=== PATIENT | female | born 1980 | race American Indian/Alaskan Native ===

== ENCOUNTER 2017-02-12 18:04 | Emergency (ER) | payer MEDICAID ==
--- NOTE | 2017-02-12 18:23 | Emergency Department Report ---
Chief Complaint: Sore Throat Stated Complaint: SORE THROAT/HEADACHE Time Seen by Provider: 02/12/17 18:19 - HPI History of Present Illness: PT c/o sore throat x 2 days - ROS Review of Systems: + body aches + sore throat + fever - Exam Physical Exam: exudative pharyngitis MSE screening note: Focused history and physical exam performed. Due to findings the following was ordered: medication pt not breast feeding ED Disposition for MSE Condition: Stable
[2017-02-12] MEDS ORDERED: BICILLIN L-A IM ONE (18:24)
[2017-02-12] MEDS ORDERED: NORCO 5/325 PO ONE (18:24)
--- NOTE | 2017-02-12 20:11 | Emergency Department Report ---
HPI - General Chief Complaint: Sore Throat Time Seen by Provider: 02/12/17 18:19 - HPI HPI: Patient here reports that she has sore throat 2 days and that she was exposed to strep from her family member. She reports bodyaches and headache. Reports chills. Denies any drooling. Denies any cough or respiratory distress. Pain is worse with eating and swallowing better after taking ibuprofen which she says she took 2 hours prior to coming to the emergency room. She is also reporting headache. Headache and sore throat is 8 out of 10 and achy. She also reports that she feels that the pain is radiating from her throat into her her ears. Last menstrual period was 01/31 2017. Denies any nausea or vomiting. Denies any abdominal pain. ED Past Medical Hx - Past Medical History Previous Medical History?: Yes Hx of Cancer: Yes (LEFT BREAST) Additional medical history: OBESITY - Surgical History Past Surgical History?: Yes Hx Breast Surgery: Yes (LEFT MASTECTOMY) Additional Surgical History: LEFT KNEE / LEFT HIP /JOS LEFT THIGH / LEFT ARM - Family History Family history: hypertension - Social History Smoking Status: Current Every Day Smoker Substance Use Type: None Other Social History: Patient lives with family at home - Medications Home Medications: Home Medications Medication Instructions Recorded Confirmed Last Taken Type Ibuprofen [Motrin] 600 mg PO Q8H PRN #15 tablet 02/12/17 Unknown Rx ED Review of Systems ROS: Stated complaint: SORE THROAT/HEADACHE Other details as noted in HPI Comment: All other systems reviewed and negative Constitutional: chills. denies: malaise, weakness Eyes: denies: eye pain, eye discharge ENT: ear pain, throat pain. denies: dental pain, congestion Respiratory: no symptoms reported Cardiovascular: denies: chest pain, palpitations, edema, syncope Gastrointestinal: denies: abdominal pain, nausea, vomiting, diarrhea, constipation Genitourinary: denies: urgency, dysuria, frequency, hematuria Musculoskeletal: myalgia. denies: back pain, arthralgia Skin: denies: rash Neurological: headache. denies: weakness, numbness, paresthesias, confusion, abnormal gait, vertigo Physical Exam - Physical Exam Vital Signs: Vital Signs 02/12/17 02/12/17 18:22 18:36 Temperature 101.5 F H Pulse Rate 102 H Respiratory 19 18 Rate Blood Pressure 130/69 O2 Sat by Pulse 99 Oximetry Vital Signs 02/12/17 02/12/17 02/12/17 18:22 18:36 20:34 Temperature 101.5 F H 98.6 F Pulse Rate 102 H 92 H Respiratory 19 18 18 Rate Blood Pressure 130/69 Blood Pressure 111/74 [Right] O2 Sat by Pulse 99 100 Oximetry General: This is a 36-year-old female well-nourished well-developed in no acute distress. Physical Exam: Head: Normocephalic, atraumatic, no abrasion, no bruising and no contusion. Eyes: Biateral pupils equal and reactive to light, bilateral EOM intact.. Bilateral conjunctival and sclera without injection, normal accommodation. Ears: Bilateral EAC without any redness drainage or swelling, Bilateral TM pearly tovar bilateral tragus is normal and nontender. No auricular abnormality Mouth: Positive pharyngeal erythema, swelling. No peritonsillar abscess. Uvula is midline and oral airways patent. Moist and tongue is normal Neck: Supple,Positive cervical adenopathy, full range of motion and no C-spine tenderness. No swelling or tracheal deviation Cardiovascular: S1, S2. Tachycardic at 102. Regular rhythm. No murmur. Capillary refill is less then 3 seconds. Lungs: Clear to auscultate bilaterally. No rhonchi, wheezes or rales. No chest wall tenderness MSK: Strength 5/5 in all extremities. No joint deformity or crepitus. Normal inspection. Full range of motion to all extremities Extremities: No clubbing, cyanosis or edema. +2 pulses. No neurovascular compromise Neurological: GCS is 15, alert and oriented 3, normal gait, negative pronator drift, negative Romberg. No sensory or motor deficit. Speech is clear and fluid and no facial droop . Normal reflexes Back: Full range of motion, normal inspection, no paraspinal or vertebral tenderness. negative SLR bilaterally and no saddle anesthesia Skin: Clean, dry and intact. No rash or lesions. Psych: Normal mood and behavior. ED Course Vital Signs 02/12/17 02/12/17 18:22 18:36 Temperature 101.5 F H Pulse Rate 102 H Respiratory 19 18 Rate Blood Pressure 130/69 O2 Sat by Pulse 99 Oximetry Vital Signs 02/12/17 02/12/17 02/12/17 18:22 18:36 20:34 Temperature 101.5 F H 98.6 F Pulse Rate 102 H 92 H Respiratory 19 18 18 Rate Blood Pressure 130/69 Blood Pressure 111/74 [Right] O2 Sat by Pulse 99 100 Oximetry - Reevaluation(s) Reevaluation #1: 02/12/17 20:58 Patient was given Bicillin 1.2 million units In triage area to treat strep throat based on physical findings. She was also given Crestview 5/325 mg 2 tablets in triage area for sore throat and headache. Her temperature has normalized and her heart rate is below 100 at present. 02/12/17 20:59 ED Medical Decision Making - Medical Decision Making Ed Course: Patient here reported that she's been having sore throats 2 days with headache and body aches and chills and was exposed to strep. Physical findings based on [facility] criteria shows patient with strep throat. Patient was given Bicillin 1.2 million units injection in triage area along with C[place] 5/ 325 2 tablets in the emergency room for fever, headache and sore throat. She reported that her headache and sore throat is better. I explained to patient that Bicillin shot is a long acting penicillin that treat strep throat so although she received shot today she will have sore throat for the next few days and I will prescribe her Motrin as needed to help with sore throat and also she can gargle warm salt water. Patient is neurologically intact. Was undescended discharge instruction in diagnoses and discharged home with her family to follow-up with her primary care physician in 2-3 days Less than/plan 1. Strep pharyngitis 2. Acute headache nonintractable 3. Fever adult Patient discharged home in stable condition with prescription for Motrin for sore throat and exhalation given on Bicillin shot. Follow up with her primary care physician in 2-3 days. Critical care attestation.: If time is entered above; I have spent that time in minutes in the direct care of this critically ill patient, excluding procedure time. ED Disposition Clinical Impression: Strep pharyngitis, Fever in adult Headache Qualifiers: Headache type: unspecified Headache chronicity pattern: acute headache Intractability: not intractable Qualified Code(s): R51 - Headache Disposition: DC-01 TO HOME OR SELFCARE Is pt being admited?: No Does the pt Need Aspirin: No Condition: Stable Instructions: Strep Throat (ED), Fever in Adults (ED), Acute Headache (ED) Additional Instructions: Please follow up with primary care physician in 2-3 days Motrin as prescribed to prevent fever and also help sore throat and headache increase your fluid intake and gargle warm salt water. Prescriptions: Ibuprofen [Motrin] 600 mg PO Q8H PRN #15 tablet PRN Reason: Pain Referrals: PRIMARY CARE, [Primary Care Provider] - 3-5 Days Forms: Accompanied Note, Work/School Release Form(ED)
[2017-02-12 20:35] VITALS: BP 111/74
== END 2017-02-12 21:11 | disposition home or self-care (01) ==
LOC: ED 18:04
DX: J02.0 Streptococcal pharyngitis (principal); R51 Headache; E66.9 Obesity, unspecified; F17.200 Nicotine dependence, unspecified, uncomplicated; Z85.3 Personal history of malignant neoplasm of breast
CPT/HCPCS: 96372; 99282; J0561